=== PATIENT | female | born 1990 ===

== ENCOUNTER 2016-10-12 09:49 | Emergency (ER) | payer BC ==
[2016-10-12 10:07] VITALS: TEMP 99; O2SAT 97
[2016-10-12] MEDS ORDERED: Dexamethasone elixir 0.5 MG/5 ML UDC PO STA (10:15)
--- NOTE | 2016-10-12 10:39 | ED PDOC ---
Arrival/HPI - General Chief Complaint: ENT Problem Time Seen by Provider: 10/12/16 10:04 - History of Present Illness Narrative History of Present Illness (Text): 10/12/16 10:37 Patient is a 26 y/o F presenting with fever and sore throat. She reports that last night she developed fever and that her sore throat has worsened overnight. She reports pain with swallowing. Reports non-productive cough. Denies chest pain, shortness of breath, difficulty breathing, change in voice, abdominal pain, diarrhea/constipation or dysuria. Reports new rash to lateral side of R neck and R wrist. Denies new lotions, detergents or creams. Denies rash on other locations. 10/12/16 10:53 Past Medical History - Cardiac Hx Cardiac Disorders: No - Pulmonary Hx Respiratory Disorders: No - Neurological Hx Neurological Disorder: No - HEENT Hx HEENT Disorder: No - Renal Hx Renal Disorder: No - Endocrine/Metabolic Hx Endocrine Disorders: No - Hematological/Oncological Hx Blood Disorders: No - Integumentary Hx Dermatological Disorder: No - Musculoskeletal/Rheumatological Other/Comment: patient states hx dislocated left knee x2 prior to today - Gastrointestinal Hx Gastrointestinal Disorders: No - Genitourinary/Gynecological Hx Genitourinary Disorders: No - Psychiatric Hx Psychophysiologic Disorder: No Hx Substance Use: No - Anesthesia Hx Anesthesia: No Family/Social History Family/Social History: No Known Family HX Smoking Status: Light Smoker < 10 Cigarettes Daily Hx Alcohol Use: Yes Frequency of alcohol use: Socially Hx Substance Use: No Allergies/Home Meds Allergies/Adverse Reactions: Allergies No Known Allergies Allergy (Verified 10/12/16 10:03) Review of Systems - Review of Systems Constitutional: Fevers. absent: Weight Change Eyes: absent: Vision Changes ENT: Sore Throat. absent: Hearing Changes, Voice Changes, Rhinorrhea, Epistaxis , Sinus Congestion Respiratory: Cough. absent: SOB, Sputum, Wheezing Cardiovascular: absent: Chest Pain, Palpitations, Edema, Calf Pain, CHRISTENSEN, Orthopnea, Syncope Gastrointestinal: absent: Abdominal Pain Genitourinary Female: absent: Dysuria, Frequency, Hematuria, Urine Output Changes, Vaginal Bleeding, Vaginal Discharge Skin: Rash Hemo/Lymphatic: Other (enlarged cervical LAD) Physical Exam Vital Signs Temp Pulse Resp BP Pulse Ox 10/12/16 12:09 101 H 18 126/64 97 10/12/16 10:04 99 F 122 H 19 111/67 97 Temperature: Afebrile Blood Pressure: Normal Pulse: Tachycardic Respiratory Rate: Normal Appearance: Positive for: Well-Appearing, Non-Toxic, Comfortable Pain Distress: Mild Mental Status: Positive for: Alert and Oriented X 3 - Systems Exam Head: Present: Atraumatic, Normocephalic Pupils: Present: PERRL Extroacular Muscles: Present: EOMI Conjunctiva: Present: Normal Ears: Present: Normal Canal. No: Erythema Mouth: Present: Moist Mucous Membranes, Normal Tounge, Normal Teeth. No: Drooling Pharnyx: Present: ERYTHEMA, EXUDATE. No: TONSILS ENLARGED, Peritonsilar Swelling, Uvular Deviation, Muffled/Hoarse Voice, Strider, Soft Palate/Uvular Edema Nose (External): Present: Atraumatic Nose (Internal): Present: Normal Inspection Neck: Present: Normal Range of Motion. No: Meningeal Signs, MIDLINE TENDERNESS , Paraspinal Tenderness Respiratory/Chest: Present: Clear to Auscultation, Good Air Exchange. No: Respiratory Distress, Accessory Muscle Use Cardiovascular: Present: Regular Rate and Rhythm, Normal S1, S2. No: Murmurs Abdomen: Present: Normal Bowel Sounds. No: Tenderness, Distention, Peritoneal Signs Upper Extremity: No: Cyanosis, Edema Lower Extremity: Present: Normal Inspection Neurological: Present: GCS=15, CN II-XII Intact Skin: Present: Rashes (rashed maculopapular rash to extensor surface of R wrist and R lateral neck (along SCM)) Medical Decision Making ED Course and Treatment: 10/12/16 10:55 Patient has sore throat, fever, tender cervical LAD, consistent with strep pharyngitis. Well appearing and tolerating po. New rash that could be viral exanthem, not related or early scarlet fever. Due to this possibility will dc with amoxicillin after toradol and decadron in ED 10/12/16 12:09 Patient feels better after toradol. She is tolerating po and vitals have improved. Will dc. - Lab Interpretations Lab Results: Lab Results 10/12/16 10:41: Grp A Beta Strep Ag Positive H - Medication Orders Current Medication Orders: Discontinued Medications Amoxicillin (Amoxil 500 Mg Cap) 500 mg PO STAT STA Stop: 10/12/16 10:17 Last Admin: 10/12/16 11:02 Dose: 500 mg Amoxicillin (Amoxil 500 Mg Cap) Confirm Administered Dose 500 mg .ROUTE .STK- MED ONE Stop: 10/12/16 10:29 Dexamethasone (Decadron) 10 mg PO ONCE ONE Stop: 10/12/16 10:46 Last Admin: 10/12/16 10:45 Dose: 10 mg Ketorolac Tromethamine (Toradol) 60 mg IM STAT STA Stop: 10/12/16 10:14 Last Admin: 10/12/16 10:59 Dose: 60 mg Ketorolac Tromethamine (Toradol) Confirm Administered Dose 60 mg .ROUTE .STK- MED ONE Stop: 10/12/16 10:29 Disposition/Present on Arrival - Present on Arrival Any Indicators Present on Arrival: No - Disposition Have Diagnosis and Disposition been Completed?: Yes Diagnosis: Strep pharyngitis Disposition: HOME/ ROUTINE Disposition Time: 11:07 Patient Plan: Discharge Condition: FAIR Discharge Instructions (ExitCare): Strep Throat (ED) Additional Instructions: Follow up with PMD within 2 days. Return to ED if condition worsens. Take full course of antibiotics. Prescriptions: Amoxicillin 875 mg PO BID #20 tablet Forms: [facility] ED School/Work Excuse
[2016-10-12 12:11] VITALS: BP 126/64; PULSE 101; RESP 18
== END 2016-10-12 11:35 | disposition home or self-care (01) ==
LOC: H.ER 09:49
DX: J02.0 Streptococcal pharyngitis (principal); R50.9 Fever, unspecified; F17.210 Nicotine dependence, cigarettes, uncomplicated
CPT/HCPCS: 81025; 87430; 96372; 99282; J1885; J8540

== ENCOUNTER 2016-12-06 06:40 | Emergency (ER) | payer BC ==
[2016-12-06] MEDS ORDERED: Dexamethasone 10 MG in Sodium Chloride 0.9% 50 ML IV STA ×2 (07:27→08:08)
[2016-12-06] MEDS ORDERED: Clindamycin 300 MG in Sodium Chloride 0.9% 100 ML IVPB STA (07:28)
--- NOTE | 2016-12-06 07:33 | ED PDOC ---
HPI: General Adult Time Seen by Provider: 12/06/16 07:06 Chief Complaint (Nursing): ENT Problem Chief Complaint (Provider): Sore Throat History Per: Patient History/Exam Limitations: no limitations Onset/Duration Of Symptoms: Days (2 days) Have you had recent travel within the past 21 days to any of the following countries: [place], [place], [place] or [place]?: No Current Symptoms Are (Timing): Still Present Additional Complaint(s): Ele Mathis, a 26 year old female, presents to the ED complaining of a sore throat x2 days. The patient states that she has pain when she swallows and a subjective fever. Denies cough, nausea, vomiting and any other medical problem. Past Medical History Reviewed: Historical Data, Nursing Documentation, Vital Signs Vital Signs: Last Vital Signs Temp 98.2 F 12/06/16 07:12 Pulse 97 H 12/06/16 07:12 Resp 18 12/06/16 07:12 BP 112/66 12/06/16 07:12 Pulse Ox 99 12/06/16 07:40 - Medical History PMH: Denies: Chronic Kidney Disease - Family History Family History: States: Unknown Family Hx - Home Medications Home Medications: Ambulatory Orders Medication Instructions Recorded Amoxicillin 875 mg PO BID #20 tablet 10/12/16 - Allergies Allergies/Adverse Reactions: Allergies Allergy/AdvReac Type Severity Reaction Status Date / Time No Known Allergies Allergy Verified 12/06/16 07:11 Review of Systems ROS Statement: Except As Marked, All Systems Reviewed And Found Negative Constitutional: Positive for: Fever (Subjective fever.) ENT: Positive for: Throat Pain (Painful swallowing) Respiratory: Negative for: Cough Gastrointestinal: Negative for: Nausea, Vomiting Physical Exam - Reviewed Nursing Documentation Reviewed: Yes Vital Signs Reviewed: Yes - Physical Exam Appears: Positive for: Non-toxic, No Acute Distress Head Exam: Positive for: ATRAUMATIC, NORMOCEPHALIC Skin: Positive for: Normal Color, Warm, Dry Eye Exam: Positive for: Normal appearance, EOMI, PERRL ENT: Positive for: Other (Handling secretions.). Negative for: Tonsillar Exudate (Bilateral tonsillar edema no exudate.) Neck: Positive for: Normal, Painless ROM, Supple Cardiovascular/Chest: Positive for: Regular Rate, Rhythm, Chest Non Tender. Negative for: Tachycardia Respiratory: Positive for: Normal Breath Sounds. Negative for: Wheezing, Respiratory Distress Gastrointestinal/Abdominal: Positive for: Normal Exam, Bowel Sounds, Soft. Negative for: Tenderness, Guarding, Rebound Back: Positive for: Normal Inspection Extremity: Positive for: Normal ROM. Negative for: Tenderness, Pedal Edema, Deformity, Swelling Neurologic/Psych: Positive for: Alert, Oriented, Gait - ECG O2 Sat by Pulse Oximetry: 99 (RA) Pulse Ox Interpretation: Normal Medical Decision Making Medical Decision Makin Initial Plan: 26 year old female presenting with a sore throat. Initial plan: * Comp Metabolic Panel * Upreg * CBC * PTT * Prothrombin time * Cleocin 300mg NS 50ml IVPB * Decadron 10mg NS 50ml IV * Reevaluation Scribe Attestation Documented by Michaela Bobby acting as a scribe for Pau Rojas MD. Provider Attestation All medical record entries made by the Scribe were at my direction and personally dictated by me. I have reviewed the chart and agree that the record accurately reflects my personal performance of the history, physical exam, medical decision making, and the department course for this patient. I have also personally directed, reviewed, and agree with the discharge instructions and disposition.
[2016-12-06 08:30] LABS: BASO % 0.2 % (0.0-2.0); EOS # 0.2 K/uL (0.0-0.7); HEMOGLOBIN 13.6 g/dL (12.0-16.0); LYMPH # 1.2 K/uL (1.0-4.3); LYMPH % 5.7 % (20.0-40.0); MEAN CORPUSCULAR HEMOGLOBIN 31.1 pg (27.0-31.0); MEAN CORPUSCULAR HGB CONC 33.7 g/dL (33.0-37.0); MONO % 4.9 % (0.0-10.0); NEUT % 88.2 % (50.0-75.0); PLATELET COUNT 219 K/uL (130-400); RED CELL DISTRIBUTION WIDTH 13.5 % (11.5-14.5); WHITE BLOOD COUNT 20.3 K/uL (4.8-10.8)
[2016-12-06 08:52] LABS: ALB/GLOB RATIO 1.1 (1.0-2.1); ALBUMIN 4.3 g/dL (3.5-5.0); ALT/SGPT 27 U/L (9-52); AST/SGOT 19 U/L (14-36); BLOOD UREA NITROGEN 9 mg/dl (7-17); CALCIUM 8.8 mg/dL (8.4-10.2); GFR AFRICAN-AMERICAN > 60; GFR NON-AFRICAN AMERICAN > 60
[2016-12-06 09:10] LABS: PROTHROMBIN TIME 11.2 Seconds (9.8-13.1)
[2016-12-06 11:36] LABS: BANDS 2 % (0-2); EOSINOPHIL 1 % (0-7); LYMPHOCYTE 7 % (20-50); MONOCYTE 1 % (0-10); NEUTROPHIL 89 % (42-75); TOTAL CELLS COUNTED 100
[2016-12-06 11:38] LABS: LARGE PLATELETS PRESENT; PLATELET ESTIMATE NORMAL (NORMAL); TOXIC GRANULATION PRESENT
[2016-12-06 12:15] VITALS: BP 106/69; PULSE 84; RESP 20; TEMP 98.5; O2SAT 98
== END 2016-12-06 12:10 | disposition home or self-care (01) ==
LOC: H.ER 06:40
DX: J02.0 Streptococcal pharyngitis (principal); R50.9 Fever, unspecified
CPT/HCPCS: 80053; 81025; 85025; 85610; 85730; 87070; 87430; 96365; 99282; J1100